=== PATIENT | male | born 1990 | race Two or more races ===

== ENCOUNTER 2016-06-24 23:17 | Emergency (ER) | payer OTHER ==
[~2016-06-24] VITALS: Ht 172.7 cm; Wt 113.4 kg
[~2016-06-24 23:17] MED LIST: ATEN50TA PO; CLON2TAB PO; PARO25TA8 PO
--- NOTE | 2016-06-24 23:18 | NUR ---
Pt brought in by mother, pt c/o Syncope 2hrs prior to arrival. Pt states he was sitting down on chair and had syncopal episode. Pt Also c/o CP radiaiting to back. Also c/o Klonopin withdrawal that was last taken about a day ago. Unable to get RX refill... pt is alert, oriented x 4, no resp distress noted or reported upon assessment... md at bedside...
[2016-06-24] MEDS ORDERED: IV NORMAL SALINE 1000 ML BAG IV ONE (23:45)
[2016-06-24 23:57] LABS: BASOPHILS % (AUTO) 0.4 % (0.0-2.0); EOSINOPHILS % (AUTO) 0.3 % (0.0-7.0); HEMATOCRIT 43.7 % (40.0-50.0); HEMOGLOBIN 14.4 g/dL (14.0-18.0); LYMPHOCYTES # (AUTO) 2.7 K/uL (0.8-4.8); LYMPHOCYTES % (AUTO) 39.9 % (20.5-51.5); MEAN CORPUSCULAR HEMOGLOBIN 31.1 uug (27.0-31.0); MEAN CORPUSCULAR HGB CONC 33 g/dL (32.0-37.0); MEAN CORPUSCULAR VOLUME 94.5 fL (82.0-92.0); MONOCYTES # (AUTO) 0.8 K/uL (0.1-1.30); MONOCYTES % (AUTO) 11.1 % (0.0-11.0); NEUTROPHILS # (AUTO) 3.3 K/uL (1.8-8.9); NEUTROPHILS % (AUTO) 48.3 % (38.5-71.5); PLATELET COUNT (AUTO) 279 K/uL (150-450); RED BLOOD CELL COUNT(AUTO) 4.63 MIL/uL (4.70-6.10); RED CELL DISTRIBUTION WIDTH 14.8 % (11.5-14.5); WHITE BLOOD COUNT (AUTO) 6.8 K/uL (4.0-11.2)
[2016-06-25] MEDS ORDERED: CLONAZEPAM 0.5 MG TABLET PO ONE
[2016-06-25 00:11] LABS: BILIRUBIN,DIRECT 0.1 mg/dL (0.0-0.2); BILIRUBIN,TOTAL 0.3 mg/dL (0.2-1.0); CALCIUM 9.2 mg/dL (8.5-10.1); CREATININE 1.2 mg/dL (0.6-1.3); TOTAL PROTEIN, SERUM 8.9 g/dL (6.4-8.2)
[2016-06-25] MEDS ORDERED: CLONAZEPAM 1 MG TABLET ONE (00:12)
[2016-06-25 00:15] LABS: *AMPHETAMINE, URINE NEGATIVE (NEGATIVE); *BARBITURATE, URINE NEGATIVE (NEGATIVE); *CANNABINOID, URINE POSITIVE (NEGATIVE); *COCCAINE, URINE NEGATIVE (NEGATIVE); *OPIATE, URINE NEGATIVE (NEGATIVE); *PHENCYCLIDINE SCREEN,URINE NEGATIVE (NEGATIVE)
[2016-06-25] MEDS ORDERED: IV D5LR 1,000 ML IV ONE (00:17)
[2016-06-25 00:23] LABS: POTASSIUM 3.6 mmol/L (3.5-5.1)
[2016-06-25 00:44] LABS: ACETAMINOPHEN < 2.0 ug/mL (10-30)
[2016-06-25 00:53] LABS: THYROID STIMULATING HORMONE 1.603 mIU/mL (0.358-3.740)
--- NOTE | 2016-06-25 01:45 | NUR ---
Patient does not wish to proceed with medical care recommended by Dr. Oviedo ). Patient given information related to possible complications, up to and including , which could occur as a result of leaving the hospital at this time. Patient verbalizes understanding of risks involved due to leaving against medical advice. Patient has signed AMA form. Pt advised to seek assistance with mental health professional, to have psych meds refilled, ERMD advised to have pt seen at [facility]... pt states he will comply and make appt... pt denied s/i, h/i, auditory/visual hallucinations... pt walked out of ER unassisted with belongings at side, father met pt in waiting room...
[2016-06-25 02:08] VITALS: BP 125/97
== END 2016-06-25 02:09 | disposition left against medical advice (07) ==
LOC: ER 23:18
DX: F10.129 Alcohol abuse with intoxication, unspecified (principal); F41.9 Anxiety disorder, unspecified; F13.20 Sedative, hypnotic or anxiolytic dependence, uncomplicated; R00.0 Tachycardia, unspecified; I10 Essential (primary) hypertension; Z76.5 Malingerer [conscious simulation]
CPT/HCPCS: 36415 ×2; 71010; 80048; 80076; 80307; 84443; 84484; 85025; 93005; 96360; 96361; 99285; A4663; G0480; G0481; G0482; J3490 ×2; J7030; 70030-TC; G6040-TC

== ENCOUNTER 2016-06-28 08:22 | Emergency (ER) | payer OTHER ==
[~2016-06-28] VITALS: Ht 180.3 cm; Wt 113.4 kg
--- NOTE | 2016-06-28 08:57 | NUR ---
dr schafer at the bedside for eval and exam.
[2016-06-28] MEDS ORDERED: ATENOLOL 50 MG TABLET PO ONE (09:30)
[2016-06-28] MEDS ORDERED: CLONAZEPAM 0.5 MG TABLET PO ONE (09:30)
[2016-06-28] MEDS ORDERED: CLONAZEPAM 1 MG TABLET ONE (09:32)
[2016-06-28] MEDS ORDERED: ATENOLOL 50 MG TABLET ONE (09:32)
[2016-06-28 09:47] VITALS: BP 164/102
--- NOTE | 2016-06-28 09:48 | NUR ---
Patient discharged to home in stable conditon. Written and verbal after care instructions given. Patient verbalizes understanding of instructions.
== END 2016-06-28 09:48 | disposition home or self-care (01) ==
LOC: ER 08:22
DX: F13.239 Sedative, hypnotic or anxiolytic dependence with withdrawal, unspecified (principal); F41.9 Anxiety disorder, unspecified; I10 Essential (primary) hypertension; F10.20 Alcohol dependence, uncomplicated
CPT/HCPCS: 99284; A4663

== ENCOUNTER 2016-07-19 19:15 | Emergency (ER) | payer OTHER ==
[~2016-07-19] VITALS: Ht 177.8 cm; Wt 108.9 kg
[2016-07-19] MEDS ORDERED: CLONAZEPAM 0.5 MG TABLET PO ONE (20:00)
--- NOTE | 2016-07-19 20:00 | NUR ---
SEEN AND EXAMINED BY ERMD, PT FEELS SHAKY AT PRESENT.
[2016-07-19] MEDS ORDERED: CLONAZEPAM 0.5 MG TABLET ONE (20:11)
--- NOTE | 2016-07-19 21:00 | NUR ---
PRESC EXPLAINED TO PT AND UNDERSTOOD, ACI GIVEN AND DISCH AMBULATORY IN STABLE CONDITION.
[2016-07-19 21:12] VITALS: BP 148/82
== END 2016-07-19 21:00 | disposition home or self-care (01) ==
LOC: ER 19:18
DX: F41.9 Anxiety disorder, unspecified (principal); F13.20 Sedative, hypnotic or anxiolytic dependence, uncomplicated; I10 Essential (primary) hypertension; F10.20 Alcohol dependence, uncomplicated
CPT/HCPCS: A4663

== ENCOUNTER 2016-08-09 17:48 | Emergency (ER) | payer OTHER ==
[~2016-08-09] VITALS: Ht 177.8 cm; Wt 115.7 kg
[2016-08-09] MEDS ORDERED: CLONAZEPAM 0.5 MG TABLET PO ONE (18:45)
--- NOTE | 2016-08-09 18:50 | NUR ---
Patient discharged to home in stable conditon. Written and verbal after care instructions given. Patient verbalizes understanding of instructions.PT WALKS IN STEADY GAIT, NO SIGN OF DISTRESS
[2016-08-09] MEDS ORDERED: CLONAZEPAM 1 MG TABLET ONE (18:55)
== END 2016-08-09 18:54 | disposition home or self-care (01) ==
LOC: ER 17:48
DX: Z76.0 Encounter for issue of repeat prescription (principal); I10 Essential (primary) hypertension; F41.9 Anxiety disorder, unspecified; F10.20 Alcohol dependence, uncomplicated
CPT/HCPCS: A4663

== ENCOUNTER 2016-09-22 21:05 | Emergency (ER) | payer OTHER ==
[~2016-09-22] VITALS: Ht 177.8 cm; Wt 111.1 kg
[~2016-09-22 21:05] MED LIST changes: +PARO25TA16 PO; -PARO25TA8 PO
[2016-09-22] MEDS: CLONAZEPAM 0.5 MG TABLET PO ONE (22:42)
[2016-09-22] MEDS ORDERED: CLONAZEPAM 1 MG TABLET ONE (22:52)
--- NOTE | 2016-09-22 22:52 | NUR ---
Patient discharged to home in stable conditon WITH MOTHER TAKING PATIENT HOME. Written and verbal after care instructions given. Patient verbalizes understanding of instructions. WALKED OUT OF WITH NO DISTRESS NOTED
[2016-09-22 22:53] VITALS: BP 155/89
== END 2016-09-22 22:55 | disposition home or self-care (01) ==
LOC: ER 21:06
DX: Z76.0 Encounter for issue of repeat prescription (principal); F41.9 Anxiety disorder, unspecified; I10 Essential (primary) hypertension; F10.20 Alcohol dependence, uncomplicated
CPT/HCPCS: A4663

== ENCOUNTER 2016-10-04 19:06 | Emergency (ER) | payer OTHER ==
[~2016-10-04] VITALS: Ht 177.8 cm; Wt 111.1 kg
[~2016-10-04 19:06] MED LIST changes: -PARO25TA16 PO
--- NOTE | 2016-10-04 19:43 | NUR ---
Dr. yoon at bedside for eval.
[2016-10-04] MEDS ORDERED: CLONAZEPAM 0.5 MG TABLET PO ONE (20:00)
[2016-10-04] MEDS ORDERED: CLONAZEPAM 1 MG TABLET ONE (20:11)
[2016-10-04 20:18] LABS: *BILIRUBIN,URIN NEGATIVE (NEGATIVE); *BLOOD, URINE NEGATIVE (NEGATIVE); *CLARITY,URINE CLEAR (CLEAR); *COLOR,URINE YELLOW (YELLOW); *KETONES,URINE 3+ (NEGATIVE); *PROTEIN,URINE TRACE (NEGATIVE); LEUKOCYTE ESTERASE ,URINE NEGATIVE (NEGATIVE); NITRITE, URINE NEGATIVE (NEGATIVE); UGLUCOSE NEGATIVE (NEGATIVE)
[2016-10-04 20:21] LABS: BASOPHILS % (AUTO) 0.5 % (0.0-2.0); EOSINOPHILS # (AUTO) 0.1 K/uL (0.0-0.7); EOSINOPHILS % (AUTO) 0.9 % (0.0-7.0); HEMATOCRIT 47.4 % (40-50); HEMOGLOBIN 15.5 G/DL (14.0-18.0); LYMPHOCYTES # (AUTO) 1.4 K/UL (0.8-4.8); LYMPHOCYTES % (AUTO) 14.8 % (20.5-51.5); MEAN CORPUSCULAR HEMOGLOBIN 30.4 UUG (27.0-31.0); MEAN CORPUSCULAR HGB CONC 33 g/dL (32.0-37.0); MEAN CORPUSCULAR VOLUME 92.7 FL (82.0-92.0); MONOCYTES # (AUTO) 0.4 K/UL (0.1-1.30); MONOCYTES % (AUTO) 4.3 % (0.0-11.0); NEUTROPHILS # (AUTO) 7.4 K/UL (1.8-8.9); NEUTROPHILS % (AUTO) 79.5 % (38.5-71.5); PLATELET COUNT (AUTO) 208 K/UL (150-450); RED BLOOD CELL COUNT(AUTO) 5.11 MIL/UL (4.7-6.1); WHITE BLOOD COUNT (AUTO) 9.3 K/UL (4.0-11.2)
[2016-10-04 20:21] LABS: BACTERIA,URINE NONE SEEN /HPF (NONE SEEN); RBC,URINE 0-3 /HPF (0-3); SQUAMOUS EPITHELIAL CELL,UR NONE SEEN /HPF (NONE SEEN); WBC,URINE 0-3 /HPF (0-3)
[2016-10-04 20:24] LABS: ETHANOL < 3 MG/DL (0-0)
[2016-10-04 20:25] LABS: ALANINE AMINOTRANSFERASE 130 U/L (16-63); ALKALINE PHOSPHATASE 45 U/L (50-136); ASPARTATE AMINOTRANSFERASE 132 U/L (15-37); BILIRUBIN,DIRECT 0.3 mg/dL (0.0-0.2); BILIRUBIN,TOTAL 0.9 mg/dL (0.2-1.0); CARBON DIOXIDE 22 mmol/L (21-32); CHLORIDE 101 mmol/L (98-107); CREATININE 0.9 mg/dL (0.6-1.3); GLUCOSE 123 mg/dL (74-106); POTASSIUM 3.2 mmol/L (3.5-5.1); TOTAL PROTEIN, SERUM 8.3 g/dL (6.4-8.2); UREA NITROGEN, BLOOD 10 mg/dL (7-18)
[2016-10-04 20:27] LABS: *AMPHETAMINE, URINE NEGATIVE (NEGATIVE); *BARBITURATE, URINE NEGATIVE (NEGATIVE); *CANNABINOID, URINE NEGATIVE (NEGATIVE); *COCCAINE, URINE NEGATIVE (NEGATIVE); *OPIATE, URINE NEGATIVE (NEGATIVE); *PHENCYCLIDINE SCREEN,URINE NEGATIVE (NEGATIVE)
--- NOTE | 2016-10-04 20:43 | NUR ---
Patient discharged to home in stable conditon. Written and verbal after care instructions given. Patient verbalizes understanding of instructions. patient left with stable gait.
[2016-10-04 20:44] VITALS: BP 140/81
[2016-10-04] MEDS ORDERED: POTASSIUM CHLORIDE 20 MEQ TAB.PRT.SR ONE (20:45)
[2016-10-04] MEDS ORDERED: POTASSIUM CHLORIDE 20 MEQ TAB.PRT.SR PO ONE (20:45)
== END 2016-10-04 20:45 | disposition home or self-care (01) ==
LOC: ER 19:07
DX: Z76.0 Encounter for issue of repeat prescription (principal); I10 Essential (primary) hypertension; F41.9 Anxiety disorder, unspecified; F10.20 Alcohol dependence, uncomplicated
CPT/HCPCS: 36415; 80307; 85025; 93005; A4663; G0480

== ENCOUNTER 2016-10-16 19:04 | Emergency (ER) | payer OTHER ==
[~2016-10-16] VITALS: Ht 177.8 cm; Wt 111.1 kg
[2016-10-16] MEDS: CLONAZEPAM 0.5 MG TABLET PO ONE (19:37)
--- NOTE | 2016-10-16 19:42 | NUR ---
Patient discharged to home in stable conditon. Written and verbal after care instructions given. Patient verbalizes understanding of instructions.
[2016-10-16] MEDS ORDERED: CLONAZEPAM 1 MG TABLET ONE (19:44)
== END 2016-10-16 19:43 | disposition home or self-care (01) ==
LOC: ER 19:06
DX: Z76.0 Encounter for issue of repeat prescription (principal); F13.20 Sedative, hypnotic or anxiolytic dependence, uncomplicated; I10 Essential (primary) hypertension; F41.0 Panic disorder [episodic paroxysmal anxiety]; F10.20 Alcohol dependence, uncomplicated; Z76.5 Malingerer [conscious simulation]
CPT/HCPCS: A4663

== ENCOUNTER 2016-10-18 00:25 | Emergency (ER) | payer OTHER ==
[~2016-10-18] VITALS: Ht 177.8 cm; Wt 108.9 kg
[2016-10-18] MEDS ORDERED: ATENOLOL 50 MG TABLET PO ONE (00:45)
[2016-10-18] MEDS ORDERED: CLONAZEPAM 0.5 MG TABLET PO ONE (00:45)
[2016-10-18 00:50] VITALS: BP 123/82
--- NOTE | 2016-10-18 00:52 | NUR ---
ACI reviewed with by pt MD, pt verbalized understanding of dc instructions. Pt then requested a dose of his home medications. Pt walked out of ER with steady gait after receiving medication refusing post medication assessment.
[2016-10-18] MEDS ORDERED: CLONAZEPAM 1 MG TABLET ONE (00:58)
[2016-10-18] MEDS ORDERED: ATENOLOL 50 MG TABLET ONE (00:58)
== END 2016-10-18 00:55 | disposition home or self-care (01) ==
LOC: ER 00:25
DX: Z76.0 Encounter for issue of repeat prescription (principal); I10 Essential (primary) hypertension; F41.9 Anxiety disorder, unspecified; F10.20 Alcohol dependence, uncomplicated
CPT/HCPCS: A4663

== ENCOUNTER 2016-11-09 13:48 | Emergency (ER) | payer OTHER ==
[~2016-11-09] VITALS: Ht 175.3 cm; Wt 108.9 kg
--- NOTE | 2016-11-09 15:23 | NUR ---
Dr Dotson at the bedside for eval.
--- NOTE | 2016-11-09 15:38 | NUR ---
Patient discharged to home in stable conditon. Written and verbal after care instructions given. Patient verbalizes understanding of instructions.
[2016-11-09 15:39] VITALS: BP 147/99
== END 2016-11-09 15:42 | disposition home or self-care (01) ==
LOC: ER 13:48
DX: F13.20 Sedative, hypnotic or anxiolytic dependence, uncomplicated (principal); F41.9 Anxiety disorder, unspecified; I10 Essential (primary) hypertension
CPT/HCPCS: A4663

== ENCOUNTER 2016-12-01 14:30 | Emergency (ER) | payer OTHER ==
[~2016-12-01] VITALS: Ht 175.3 cm; Wt 108.9 kg
--- NOTE | 2016-12-01 15:13 | NUR ---
MSE COMPLETED, PT D/C'D HOME, ACI RX X1 GIVEN. PT AMBULATED W/O DIFF/TOOK ALL BELONGINGS.
[2016-12-01 15:14] VITALS: BP 132/82
== END 2016-12-01 15:15 | disposition home or self-care (01) ==
LOC: ER 14:30
DX: F13.20 Sedative, hypnotic or anxiolytic dependence, uncomplicated (principal); I10 Essential (primary) hypertension; F41.0 Panic disorder [episodic paroxysmal anxiety]
CPT/HCPCS: A4663

== ENCOUNTER 2016-12-20 00:13 | Emergency (ER) | payer OTHER ==
[~2016-12-20] VITALS: Ht 175.3 cm; Wt 108.9 kg
--- NOTE | 2016-12-20 00:45 | NUR ---
TO ROOM 5A FOR ER EVAL
--- NOTE | 2016-12-20 01:40 | NUR ---
PT RESTIG.NO COMPLAINTS VOICED.
--- NOTE | 2016-12-20 02:35 | NUR ---
ERMD AT BEDSIDE TALKING WITH PT
[2016-12-20 02:44] VITALS: BP 141/90
--- NOTE | 2016-12-20 02:45 | NUR ---
Patient discharged to home in stable conditon. Written and verbal after care instructions given. Patient verbalizes understanding of instructions.
== END 2016-12-20 02:46 | disposition home or self-care (01) ==
LOC: ER 00:15
DX: F19.939 Other psychoactive substance use, unspecified with withdrawal, unspecified (principal); I10 Essential (primary) hypertension; F41.9 Anxiety disorder, unspecified
CPT/HCPCS: 99283; A4663

== ENCOUNTER 2017-01-10 21:57 | Emergency (ER) | payer OTHER ==
[~2017-01-10] VITALS: Ht 175.3 cm; Wt 108.9 kg
--- NOTE | 2017-01-10 22:20 | NUR ---
Patient discharged to home in stable conditon. Written and verbal after care instructions given. Patient verbalizes understanding of instructions.
== END 2017-01-10 22:21 | disposition home or self-care (01) ==
LOC: ER 21:59
DX: Z76.0 Encounter for issue of repeat prescription (principal); F41.9 Anxiety disorder, unspecified; I10 Essential (primary) hypertension
CPT/HCPCS: A4663

== ENCOUNTER 2017-03-27 17:27 | Emergency (ER) | payer OTHER ==
[~2017-03-27] VITALS: Ht 177.8 cm; Wt 111.1 kg
[2017-03-27] MEDS ORDERED: AMPH30CA3 PO (18:28)
--- NOTE | 2017-03-27 20:19 | NUR ---
Patient discharged to home in stable conditon. Written and verbal after care instructions given. Patient verbalizes understanding of instructions.
== END 2017-03-27 20:20 | disposition home or self-care (01) ==
LOC: ER 17:27
DX: F41.1 Generalized anxiety disorder (principal); I10 Essential (primary) hypertension
CPT/HCPCS: 99284; A4663

== ENCOUNTER 2017-05-08 19:44 | Emergency (ER) | payer OTHER ==
[~2017-05-08] VITALS: Ht 177.8 cm; Wt 111.1 kg
[~2017-05-08 19:44] MED LIST changes: +AMPH30CA3 PO
[2017-05-08] MEDS ORDERED: CLONAZEPAM 0.5 MG TABLET PO ONE (21:30)
--- NOTE | 2017-05-08 21:39 | NUR ---
Patient discharged to home in stable conditon. Written and verbal after care instructions given. Patient verbalizes understanding of instructions. Pt ambulated from ER w/ steady gait. VSS. No distress noted. Pt took all personal belongings.
[2017-05-08 21:42] VITALS: BP 122/79
[2017-05-08] MEDS ORDERED: CLONAZEPAM 1 MG TABLET ONE (21:46)
== END 2017-05-08 21:43 | disposition home or self-care (01) ==
LOC: ER 19:46
DX: Z76.0 Encounter for issue of repeat prescription (principal); I10 Essential (primary) hypertension; F41.9 Anxiety disorder, unspecified
CPT/HCPCS: 99283; A4663

== ENCOUNTER 2017-05-19 16:19 | Emergency (ER) | payer OTHER ==
[~2017-05-19] VITALS: Ht 177.8 cm; Wt 108.9 kg
[2017-05-19] MEDS ORDERED: CLONAZEPAM 0.5 MG TABLET PO ONE (16:45)
[2017-05-19] MEDS ORDERED: HYDROCODONE/APAP 10-325 MG TABLET PO ONE (16:45)
[2017-05-19] MEDS ORDERED: CLONAZEPAM 1 MG TABLET ONE (16:49)
[2017-05-19] MEDS ORDERED: HYDROCODONE/APAP 10-325 MG TABLET ONE (16:49)
--- NOTE | 2017-05-19 17:01 | NUR ---
Patient discharged to home in stable conditon. Written and verbal after care instructions given. Patient verbalizes understanding of instructions.PT WALKS IN STEADY GAIT. PT WITH MOTHER, PT NOT DRIVING.
== END 2017-05-19 17:05 | disposition home or self-care (01) ==
LOC: ER 16:20
DX: F41.9 Anxiety disorder, unspecified (principal); I10 Essential (primary) hypertension; Z76.0 Encounter for issue of repeat prescription
CPT/HCPCS: A4663

== ENCOUNTER 2017-07-06 23:09 | Emergency (ER) | payer OTHER ==
[~2017-07-06] VITALS: Ht 177.8 cm; Wt 111.1 kg
--- NOTE | 2017-07-07 00:10 | NUR ---
PT STATES HE RAN OUT OF MEDS FOR ANXIEY AND HTN4 DAYS AGO. REQUEST REFILL.
[2017-07-07] MEDS ORDERED: ATENOLOL 50 MG TABLET PO ONE (00:15)
[2017-07-07] MEDS ORDERED: CLONAZEPAM 0.5 MG TABLET PO ONE (00:15)
[2017-07-07] MEDS ORDERED: ATENOLOL 50 MG TABLET ONE (00:17)
[2017-07-07] MEDS ORDERED: CLONAZEPAM 1 MG TABLET ONE (00:17)
--- NOTE | 2017-07-07 00:20 | NUR ---
Patient discharged to home in stable conditon. Written and verbal after care instructions given. Patient verbalizes understanding of instructions. Pt expresses he is less anxious now, and that he "feels better already". No distress noted.
[2017-07-07 01:08] VITALS: BP 140/76
== END 2017-07-07 01:08 | disposition home or self-care (01) ==
LOC: ER 23:10
DX: F41.1 Generalized anxiety disorder (principal); F41.0 Panic disorder [episodic paroxysmal anxiety]; I10 Essential (primary) hypertension; Z79.899 Other long term (current) drug therapy
CPT/HCPCS: A4663

== ENCOUNTER 2017-07-24 04:58 | Emergency (ER) | payer OTHER ==
[~2017-07-24] VITALS: Ht 177.8 cm; Wt 111.1 kg
--- NOTE | 2017-07-24 05:24 | NUR ---
PT PRESENTS TO ER IN ANXIOUS STATE, STATING HE "FEELS LIKE SOMETHING BAD IS GOING TO HAPPEN" AND THAT HE "FEELS LIKE HE IS DYING". STATES HE HAS NOT HAD ANY OF HIS PRESCRIBEB BENZOS OR BP MEDS FOR 3 DAYS. STATES HE HAS NOT HAD ANY ILLICIT DRUGS, BUT "DRANK ALOT TODAY". DENIES SUICIDAL IDEATION. DENIES HEARING VOICES. PT REQUESTS MED REFILLS.
--- NOTE | 2017-07-24 05:28 | NUR ---
DR GUILLERMINA CRUZ MD AT BEDSIDE FOR MSE.
[2017-07-24] MEDS ORDERED: ATENOLOL 50 MG TABLET PO ONE (05:45)
[2017-07-24] MEDS ORDERED: CLONAZEPAM 0.5 MG TABLET PO ONE (05:45)
[2017-07-24] MEDS ORDERED: CLONAZEPAM 1 MG TABLET ONE (05:47)
[2017-07-24] MEDS ORDERED: ATENOLOL 50 MG TABLET ONE (05:47)
--- NOTE | 2017-07-24 06:06 | NUR ---
Patient discharged to home in stable conditon. Written and verbal after care instructions given. Patient verbalizes understanding of instructions. PT ambulated from ER w/ steady gait. No distress noted.
[2017-07-24 06:07] VITALS: BP 147/87
== END 2017-07-24 06:08 | disposition home or self-care (01) ==
LOC: ER 05:01
DX: F41.8 Other specified anxiety disorders (principal); I10 Essential (primary) hypertension; F32.9 Major depressive disorder, single episode, unspecified; Z79.899 Other long term (current) drug therapy
CPT/HCPCS: 93005; A4663

== ENCOUNTER 2017-07-24 06:30 | Emergency (ER) | payer OTHER ==
[~2017-07-24] VITALS: Ht 177.8 cm; Wt 111.1 kg
--- NOTE | 2017-07-24 06:32 | NUR ---
PT WAS IN ER THE PAST HOUR FOR ANXIETY/MED WITHDRAWL. AFTER MEDICAL AND NURSING INTRVVENTIONS, PT WAS TABLE FOR DISCHARGE. DISCHARGE INSTRUCTIONS GIVEN, AND PT VERBALIZED UNDERSTANDING OF AFTERCARE. PT SIGNED DISCHARGE, AND CALMLY LEFT ROOM W/ NO DISTRESS, SO PT WAS CHARTED OUT OF SYSTEM. HOWEVER, PT THEN REQUESTED TO USE PHONE TO CALL MOTHER. AFTER THE PHONE CALL, PT BECAME VISIBLY UPSET AND CRYING. PT VERBALIZES DESIRE TO BE ADMITTED TO PSYCH UNIT. PT STATED "I NEED HELP," BUT DID NOT EXPRESS ANY THOUGHTS OF SI OR SELF HARM.
--- NOTE | 2017-07-24 06:43 | NUR ---
DR SOUMYA CRUZ MD AT BEDSIDE FOR MSE.
--- NOTE | 2017-07-24 07:14 | NUR ---
dr yoon evaluated the pt. pt was d/c to home. d/c instructions given to the pt.
[2017-07-24 07:16] VITALS: BP 136/77
== END 2017-07-24 07:22 | disposition home or self-care (01) ==
LOC: ER 06:32
DX: F41.9 Anxiety disorder, unspecified (principal); I10 Essential (primary) hypertension; Z76.0 Encounter for issue of repeat prescription; Z79.899 Other long term (current) drug therapy
CPT/HCPCS: A4663

== ENCOUNTER 2017-08-23 09:24 | Emergency (ER) | payer OTHER ==
[~2017-08-23] VITALS: Ht 177.8 cm; Wt 111.1 kg
--- NOTE | 2017-08-23 09:53 | NUR ---
PT SEEN AND EVAZLUATED BY DR. WELLER.
[2017-08-23] MEDS ORDERED: CLONAZEPAM 1 MG TABLET ONE (09:56)
[2017-08-23 09:59] VITALS: BP 142/78
--- NOTE | 2017-08-23 09:59 | NUR ---
Patient discharged to home in stable conditon. Written and verbal after care instructions given. Patient verbalizes understanding of instructions. RX X4 GIVEN PT ambulatory with a steady gait
[2017-08-23] MEDS ORDERED: CLONAZEPAM 0.5 MG TABLET PO ONE (10:00)
== END 2017-08-23 09:59 | disposition home or self-care (01) ==
LOC: ER 09:27
DX: F13.20 Sedative, hypnotic or anxiolytic dependence, uncomplicated (principal); F41.1 Generalized anxiety disorder; I10 Essential (primary) hypertension; Z79.899 Other long term (current) drug therapy
CPT/HCPCS: A4663

== ENCOUNTER 2017-09-13 22:32 | Emergency (ER) | payer OTHER ==
[~2017-09-13] VITALS: Ht 177.8 cm; Wt 106.6 kg
[2017-09-14] MEDS ORDERED: LORAZEPAM 2 MG/1 ML VIAL IV ONE
[2017-09-14] MEDS ORDERED: PANTOPRAZOLE SODIUM 40 MG VIAL IV ONE
[2017-09-14] MEDS ORDERED: IV NORMAL SALINE 1000 ML BAG IV ONE
[2017-09-14] MEDS ORDERED: PANTOPRAZOLE SODIUM 40 MG VIAL ONE (00:12)
[2017-09-14] MEDS ORDERED: LORAZEPAM 2 MG/1 ML VIAL ONE (00:13)
[2017-09-14 00:16] LABS: BASOPHILS % (AUTO) 0.2 % (0.0-2.0); EOSINOPHILS % (AUTO) 0.2 % (0.0-7.0); HEMATOCRIT 42.7 % (36.7-47.1); HEMOGLOBIN 15.1 g/dL (12.5-16.3); LYMPHOCYTES # (AUTO) 1.2 K/uL (20.0-40.0); MEAN CORPUSCULAR HEMOGLOBIN 33.3 uug (23.8-33.4); MEAN CORPUSCULAR HGB CONC 35 g/dL (32.5-36.3); MONOCYTES # (AUTO) 0.7 K/uL (2.0-10.0); MONOCYTES % (AUTO) 6.2 % (0.0-11.0); NEUTROPHILS # (AUTO) 8.8 K/uL (1.8-8.9); NEUTROPHILS % (AUTO) 82.4 % (38.5-71.5); PLATELET COUNT (AUTO) 186 K/uL (152-348); RED BLOOD CELL COUNT(AUTO) 4.55 MIL/uL (4.06-5.63); WHITE BLOOD COUNT (AUTO) 10.7 K/uL (3.6-10.2)
[2017-09-14 00:31] LABS: BILIRUBIN,DIRECT 0.2 mg/dL (0.0-0.2); BILIRUBIN,TOTAL 0.6 mg/dL (0.2-1.0); CREATININE 1.1 mg/dL (0.6-1.3); TOTAL PROTEIN, SERUM 8.2 g/dL (6.4-8.2)
--- NOTE | 2017-09-14 01:50 | NUR ---
SEE DOWNTIME PAPERWORK FOR A LIST OF ORDERED MEDS GIVEN DURING DOWNTIME FOR THIS PATIENT
[2017-09-14] MEDS ORDERED: MORPHINE SULFATE 4 MG/1 ML DISP.SYRIN ONE ×2 (02:03→02:35)
[2017-09-14] MEDS ORDERED: ONDANSETRON HCL 4 MG TABLET ONE (02:04)
--- NOTE | 2017-09-14 02:07 | NUR ---
PT IN BED RESTING QUIETLY WATCHING TV. PT IS CALM AND COOPERATIVE. PT IS OFFERED BEVERAGE AND TOILETING. PT REFUSES TOILETING AND ACCEPTS BEVERAGE. NO SIGNS OF DISTRESS WITNESSED AT THIS TIME.
--- NOTE | 2017-09-14 04:39 | NUR ---
REPORT GIVEN TO [facility] NUR[facility] RN
--- NOTE | 2017-09-14 04:50 | NUR ---
GAVE REPORT TO EMT SHEILA CARDONA W/ EDI #[id number]
== END 2017-09-14 04:40 | disposition short-term general hospital (02) ==
LOC: ER 22:39
DX: K85.90 Acute pancreatitis without necrosis or infection, unspecified (principal); I10 Essential (primary) hypertension; F12.10 Cannabis abuse, uncomplicated; F15.10 Other stimulant abuse, uncomplicated; Z79.899 Other long term (current) drug therapy
CPT/HCPCS: 36415; 71045; 80048; 80076; 83690; 85025; 93005; 96374; 96375; 99285; A4663; C9113; G0480; J2060; J2270 ×2; J7030; Q0162

== ENCOUNTER 2017-10-26 21:32 | Emergency (ER) | payer SELFPAY ==
[~2017-10-26] VITALS: Ht 175.3 cm; Wt 111.1 kg
--- NOTE | 2017-10-26 22:02 | NUR ---
DR SOUMYA CRUZ MD AT BEDSIDE FOR MSE.
[2017-10-26] MEDS ORDERED: IBUPROFEN 800 MG TABLET ONE (22:28)
[2017-10-26] MEDS ORDERED: ATENOLOL 50 MG TABLET ONE (22:42)
[2017-10-26] MEDS ORDERED: CLONAZEPAM 1 MG TABLET ONE (22:43)
[2017-10-26] MEDS ORDERED: CLONAZEPAM 0.5 MG TABLET PO ONE (22:45)
[2017-10-26] MEDS ORDERED: ATENOLOL 50 MG TABLET PO ONE (22:45)
[2017-10-26] MEDS ORDERED: IBUPROFEN 800 MG TABLET PO ONE (22:45)
--- NOTE | 2017-10-26 22:55 | NUR ---
Patient discharged to home in stable conditon. Written and verbal after care instructions given. Patient verbalizes understanding of instructions. Pt denies CP, SOB, SI, GUZMAN. No distress noted. VSS. Pt took all personal belongings.
[2017-10-26 22:57] VITALS: BP 152/78
== END 2017-10-26 22:58 | disposition home or self-care (01) ==
LOC: ER 21:33
DX: F41.9 Anxiety disorder, unspecified (principal); Z76.0 Encounter for issue of repeat prescription; I10 Essential (primary) hypertension; F12.10 Cannabis abuse, uncomplicated; F15.10 Other stimulant abuse, uncomplicated
CPT/HCPCS: A4663

== ENCOUNTER 2017-11-17 08:35 | Emergency (ER) | payer SELFPAY ==
[~2017-11-17] VITALS: Ht 177.8 cm; Wt 109.8 kg
[2017-11-17] MEDS ORDERED: HYDR-3980 PO (08:54)
[2017-11-17] MEDS ORDERED: ONDA4TAB8 SL (08:54)
[2017-11-17] MEDS: CLONAZEPAM 0.5 MG TABLET PO ONE (09:09)
[2017-11-17 09:10] VITALS: BP 166/104
[2017-11-17] MEDS: ATENOLOL 50 MG TABLET PO ONE (09:10)
[2017-11-17] MEDS ORDERED: ATENOLOL 50 MG TABLET ONE (09:12)
[2017-11-17] MEDS ORDERED: CLONAZEPAM 1 MG TABLET ONE (09:12)
--- NOTE | 2017-11-17 09:14 | NUR ---
Patient discharged to home in stable conditon with brisk steady gait. Written and verbal after care instructions given to patient. Patient verbalizes understanding of instructions. MD gave prescription for Klonopin, zofran & atenolol.
== END 2017-11-17 09:19 | disposition home or self-care (01) ==
LOC: ER 08:35
DX: Z76.0 Encounter for issue of repeat prescription (principal); I10 Essential (primary) hypertension; F13.20 Sedative, hypnotic or anxiolytic dependence, uncomplicated; F12.10 Cannabis abuse, uncomplicated; Z88.8 Allergy status to other drugs, medicaments and biological substances
CPT/HCPCS: A4663

== ENCOUNTER 2017-11-28 10:10 | Emergency (ER) | payer SELFPAY ==
[~2017-11-28] VITALS: Ht 177.8 cm; Wt 113.4 kg
[~2017-11-28 10:10] MED LIST changes: -AMPH30CA3 PO; +HYDR-3980 PO; +ONDA4TAB8 SL
[2017-11-28] MEDS ORDERED: ATENOLOL 50 MG TABLET PO ONE (10:45)
[2017-11-28] MEDS ORDERED: CLONAZEPAM 0.5 MG TABLET PO ONE (10:45)
[2017-11-28 10:47] VITALS: BP 159/90
--- NOTE | 2017-11-28 10:47 | NUR ---
Patient discharged to home in stable conditon. Written and verbal after care instructions given. Patient verbalizes understanding of instructions. Pt was given referrals, stressed follow up or return to ER for worsening s/s. Pt stated his father will drive him home.
[2017-11-28] MEDS ORDERED: CLONAZEPAM 1 MG TABLET ONE (10:50)
[2017-11-28] MEDS ORDERED: ATENOLOL 50 MG TABLET ONE (10:50)
== END 2017-11-28 10:49 | disposition home or self-care (01) ==
LOC: ER 10:10
DX: F13.20 Sedative, hypnotic or anxiolytic dependence, uncomplicated (principal); F15.23 Other stimulant dependence with withdrawal; I10 Essential (primary) hypertension; Z88.8 Allergy status to other drugs, medicaments and biological substances; F12.10 Cannabis abuse, uncomplicated
CPT/HCPCS: A4663

== ENCOUNTER 2017-12-08 22:55 | Emergency (ER) | payer MEDICAID ==
[~2017-12-08] VITALS: Ht 177.8 cm; Wt 108.9 kg
[2017-12-09] MEDS ORDERED: CLONAZEPAM 0.5 MG TABLET PO ONE (01:00)
[2017-12-09] MEDS ORDERED: ATENOLOL 50 MG TABLET PO ONE (01:00)
[2017-12-09] MEDS ORDERED: ATENOLOL 50 MG TABLET ONE (01:05)
[2017-12-09] MEDS ORDERED: CLONAZEPAM 1 MG TABLET ONE (01:05)
[2017-12-09 01:14] VITALS: BP 165/113
--- NOTE | 2017-12-09 01:15 | NUR ---
Patient discharged to home in stable conditon. Written and verbal after care instructions given. Patient verbalizes understanding of instructions.steady of gait ambulated home ,oyster picker by mother .
== END 2017-12-09 01:16 | disposition home or self-care (01) ==
LOC: ER 22:56
DX: F15.93 Other stimulant use, unspecified with withdrawal (principal); I10 Essential (primary) hypertension; Z88.8 Allergy status to other drugs, medicaments and biological substances; F12.10 Cannabis abuse, uncomplicated
CPT/HCPCS: A4663

== ENCOUNTER 2017-12-28 21:23 | Emergency (ER) | payer MEDICAID ==
[~2017-12-28] VITALS: Ht 177.8 cm; Wt 111.1 kg
--- NOTE | 2017-12-28 22:05 | NUR ---
Patient discharged to home in stable conditon. Written and verbal after care instructions given. Patient verbalizes understanding of instructions.
[2017-12-28 22:06] VITALS: BP 149/88
== END 2017-12-28 22:06 | disposition home or self-care (01) ==
LOC: ER 21:24
DX: F41.9 Anxiety disorder, unspecified (principal); F13.20 Sedative, hypnotic or anxiolytic dependence, uncomplicated; I10 Essential (primary) hypertension; F12.10 Cannabis abuse, uncomplicated; Z88.8 Allergy status to other drugs, medicaments and biological substances
CPT/HCPCS: A4663

== ENCOUNTER 2018-01-09 13:45 | Emergency (ER) | payer MEDICAID ==
[~2018-01-09] VITALS: Ht 177.8 cm; Wt 111.1 kg
[2018-01-09] MEDS ORDERED: ATENOLOL 50 MG TABLET PO ONE (14:15)
[2018-01-09] MEDS ORDERED: IBUPROFEN 600 MG TABLET PO ONE (14:15)
[2018-01-09] MEDS ORDERED: CLONAZEPAM 0.5 MG TABLET PO ONE (14:15)
[2018-01-09] MEDS ORDERED: ATENOLOL 50 MG TABLET ONE (14:16)
[2018-01-09] MEDS ORDERED: CLONAZEPAM 1 MG TABLET ONE (14:16)
[2018-01-09 14:19] VITALS: BP 148/103
[2018-01-09] MEDS ORDERED: IBUPROFEN 600 MG TABLET ONE (14:20)
--- NOTE | 2018-01-09 14:21 | NUR ---
Patient discharged to home in stable conditon. Written and verbal after care instructions given. Patient verbalizes understanding of instructions.
== END 2018-01-09 14:23 | disposition home or self-care (01) ==
LOC: ER 13:45
DX: F41.9 Anxiety disorder, unspecified (principal); Z76.0 Encounter for issue of repeat prescription; I10 Essential (primary) hypertension; F12.10 Cannabis abuse, uncomplicated; Z88.8 Allergy status to other drugs, medicaments and biological substances
CPT/HCPCS: A4663

== ENCOUNTER 2018-02-22 20:33 | Emergency (ER) | payer SELFPAY ==
[~2018-02-22] VITALS: Ht 177.8 cm; Wt 108.9 kg
[2018-02-22] MEDS ORDERED: CLONAZEPAM 0.5 MG TABLET PO ONE (21:15)
[2018-02-22] MEDS ORDERED: ATENOLOL 50 MG TABLET PO ONE (21:15)
[2018-02-22] MEDS ORDERED: CLONAZEPAM 1 MG TABLET ONE (21:34)
[2018-02-22] MEDS ORDERED: ATENOLOL 50 MG TABLET ONE (21:34)
--- NOTE | 2018-02-22 21:41 | NUR ---
Patient discharged to home in stable conditon. Written and verbal after care instructions given. Patient verbalizes understanding of instructions. Pt instructed not to drive. All belongings with pt. VSS. NAD noted.
[2018-02-22 21:42] VITALS: BP 138/86
== END 2018-02-22 21:42 | disposition home or self-care (01) ==
LOC: ER 20:34
DX: Z76.0 Encounter for issue of repeat prescription (principal); I10 Essential (primary) hypertension; F12.10 Cannabis abuse, uncomplicated; Z88.8 Allergy status to other drugs, medicaments and biological substances
CPT/HCPCS: A4663

== ENCOUNTER 2018-03-19 11:45 | Emergency (ER) | payer SELFPAY ==
[~2018-03-19] VITALS: Ht 177.8 cm; Wt 108.9 kg
--- NOTE | 2018-03-19 12:00 | NUR ---
27 YEARS OLD MALE WALKING TO ER C/O ANXIETY D/T KLONOPIN WITHDRAWAL, PATIENT QUIET NO ACUTE DISTRESS WILL CONTINUE TO MONITOR.
[2018-03-19] MEDS ORDERED: GABAPENTIN 300 MG CAPSULE ONE (14:09)
[2018-03-19] MEDS ORDERED: GABAPENTIN 300 MG CAPSULE PO ONE (14:15)
--- NOTE | 2018-03-19 15:49 | NUR ---
PATIENT CONDITION STABLE D/C HOME WITH INSTRUCTIONS AFTER CARE REVIEWED UNDERSTOOD LEFT ER AMBULATORY WITH STEADY GAIT.
[2018-03-19] MEDS ORDERED: GABA600T2 PO (22:59)
[2018-03-19] MEDS ORDERED: GABA-534 PO (22:59)
[2018-03-24] MEDS ORDERED: ATEN50TA PO (13:17)
[2018-03-24] MEDS ORDERED: QUET25TA PO (13:17)
[2018-03-24] MEDS ORDERED: GABA-534 PO (13:17)
== END 2018-03-19 15:52 | disposition home or self-care (01) ==
LOC: ER 11:45
DX: F13.20 Sedative, hypnotic or anxiolytic dependence, uncomplicated (principal); I10 Essential (primary) hypertension; F12.10 Cannabis abuse, uncomplicated; Z88.8 Allergy status to other drugs, medicaments and biological substances; Z79.899 Other long term (current) drug therapy
CPT/HCPCS: A4663

== ENCOUNTER 2018-03-19 16:05 | Inpatient (IN) | payer MEDICAID, OTHER ==
[~2018-03-19] VITALS: Ht 175.3 cm; Wt 117.0 kg
[2018-03-19] MEDS ORDERED: LORAZEPAM 2 MG/1 ML VIAL IM PRN (16:45)
[2018-03-19] MEDS ORDERED: ONDANSETRON ODT 4 MG TAB.RAPDIS SL PRN (16:45)
[2018-03-19] MEDS ORDERED: MIRALAX 17 GM POWD.PACK PO PRN (16:45)
[2018-03-19] MEDS ORDERED: HYDROXYZINE PAMOATE 25 MG CAPSULE PO PRN (16:45)
[2018-03-19] MEDS ORDERED: LOPERAMIDE HCL 2 MG CAPSULE PO PRN ×2 (16:45)
[2018-03-19] MEDS ORDERED: MAGNESIUM HYDROXIDE 30 ML LIQUID UDC PO PRN (16:45)
[2018-03-19] MEDS ORDERED: ONDANSETRON 4 MG/2 ML VIAL IM PRN (16:45)
[2018-03-19] MEDS ORDERED: MAG HYDROX/AL HYDROX/SIMETH 30 ML LIQUID UDC PO PRN (16:45)
[2018-03-19] MEDS ORDERED: LORAZEPAM 1 MG TABLET PO PRN (16:45)
[2018-03-19 16:53] VITALS: BP 159/91
[2018-03-19 17:47] LABS: *AMPHETAMINE, URINE NEGATIVE (NEGATIVE); *BARBITURATE, URINE NEGATIVE (NEGATIVE); *CANNABINOID, URINE POSITIVE (NEGATIVE); *COCCAINE, URINE NEGATIVE (NEGATIVE); *OPIATE, URINE NEGATIVE (NEGATIVE); *PHENCYCLIDINE SCREEN,URINE NEGATIVE (NEGATIVE)
[2018-03-19] MEDS ORDERED: DIAZEPAM 10 MG TABLET PO ONE (18:00)
[2018-03-19] MEDS: IBUPROFEN 600 MG TABLET PO PRN (19:38)
[2018-03-19 20:00] VITALS: BP 131/87
[2018-03-19 20:08] LABS: BASOPHILS # (AUTO) 0.1 K/uL (0.0-8.0); BASOPHILS % (AUTO) 0.7 % (0.0-2.0); EOSINOPHILS # (AUTO) 0.1 K/uL (0.0-0.7); EOSINOPHILS % (AUTO) 0.7 % (0.0-7.0); HEMATOCRIT 47.8 % (36.7-47.1); HEMOGLOBIN 16.4 g/dL (12.5-16.3); LYMPHOCYTES # (AUTO) 2.5 K/uL (20.0-40.0); MEAN CORPUSCULAR HEMOGLOBIN 33.1 uug (23.8-33.4); MEAN CORPUSCULAR HGB CONC 34 g/dL (32.5-36.3); MEAN CORPUSCULAR VOLUME 96.3 fL (73.0-96.2); MONOCYTES # (AUTO) 0.9 K/uL (2.0-10.0); MONOCYTES % (AUTO) 8.7 % (0.0-11.0); NEUTROPHILS # (AUTO) 6.8 K/uL (1.8-8.9); NEUTROPHILS % (AUTO) 65.9 % (38.5-71.5); PLATELET COUNT (AUTO) 269 K/uL (152-348); RED BLOOD CELL COUNT(AUTO) 4.97 MIL/uL (4.06-5.63); WHITE BLOOD COUNT (AUTO) 10.3 K/uL (3.6-10.2)
[2018-03-19 20:22] LABS: ETHANOL < 3 MG/DL (0-0)
[2018-03-19 20:24] LABS: ALANINE AMINOTRANSFERASE 235 U/L (16-63); ALKALINE PHOSPHATASE 52 U/L (50-136); ASPARTATE AMINOTRANSFERASE 124 U/L (15-37); BILIRUBIN,TOTAL 0.5 mg/dL (0.2-1.0); CARBON DIOXIDE 29 mmol/L (21-32); CHLORIDE 102 mmol/L (98-107); CREATININE 1.1 mg/dL (0.6-1.3); GLUCOSE 78 mg/dL (74-106); MAGNESIUM 1.8 mg/dL (1.8-2.4); POTASSIUM 3.7 mmol/L (3.5-5.1); TOTAL PROTEIN, SERUM 8.9 g/dL (6.4-8.2); UREA NITROGEN, BLOOD 12 mg/dL (7-18)
[2018-03-19 20:29] LABS: THYROID STIMULATING HORMONE 3.579 mIU/mL (0.358-3.740)
[2018-03-19] MEDS ORDERED: GABA600T2 PO (22:59)
[2018-03-19] MEDS ORDERED: GABA-534 PO (22:59)
[2018-03-19] MEDS: diphenhydrAMINE 50 MG CAPSULE PO PRN (23:39)
[2018-03-20] VITALS: BP 118/67
[2018-03-20] MEDS ORDERED: 5 DAY TAPER VALIUM-SERENITY PROTOCOL PO PRN (05:00)
[2018-03-20 08:36] VITALS: BP 124/75
[2018-03-20] MEDS: IBUPROFEN 600 MG TABLET PO PRN ×2 (08:40→21:10)
[2018-03-20] MEDS: DIAZEPAM 10 MG TABLET PO SCH ×3 (08:40→21:10)
[2018-03-20] MEDS: MULTIVITAMINS,THERAPEUTIC TABLET PO SCH (08:40)
[2018-03-20] MEDS ORDERED: TUBERCULIN,PURIF.PROT.DERIV. 5 TU/0.1 ML TEST ID ONE (09:00)
[2018-03-20] MEDS: ATENOLOL 50 MG TABLET PO SCH (09:52)
[2018-03-20] MEDS: GABAPENTIN 300 MG CAPSULE PO SCH (10:16)
[2018-03-20 12:00] VITALS: BP 115/79
[2018-03-20 16:37] VITALS: BP 134/79
[2018-03-20 16:52] VITALS: BP 137/85
[2018-03-20 20:00] VITALS: BP 153/103
[2018-03-20] MEDS ORDERED: GABAPENTIN 300 MG CAPSULE PO SCH (21:00)
[2018-03-20] MEDS: CLONIDINE HCL 0.1 MG TABLET PO PRN (21:10)
[2018-03-21] VITALS: BP 113/73
[2018-03-21] MEDS: diphenhydrAMINE 50 MG CAPSULE PO PRN ×2 (00:11→23:59)
[2018-03-21 08:00] VITALS: BP 145/87
[2018-03-21] MEDS: ATENOLOL 50 MG TABLET PO SCH (08:27)
[2018-03-21] MEDS: DIAZEPAM 5 MG TABLET PO SCH ×4 (08:28→21:59)
[2018-03-21] MEDS: MULTIVITAMINS,THERAPEUTIC TABLET PO SCH (08:28)
[2018-03-21] MEDS: GABAPENTIN 300 MG CAPSULE PO SCH ×3 (08:28→21:59)
[2018-03-21 09:02] LABS: BILIRUBIN,DIRECT 0.2 mg/dL (0.0-0.2); BILIRUBIN,TOTAL 0.7 mg/dL (0.2-1.0); TOTAL PROTEIN, SERUM 8.3 g/dL (6.4-8.2)
[2018-03-21 12:00] VITALS: BP 156/75
[2018-03-21] MEDS: CLONIDINE HCL 0.1 MG TABLET PO PRN ×2 (12:38→23:59)
[2018-03-21 13:06] LABS: HEPATITIS B SURFACE AG Negative (Negative)
[2018-03-21 16:00] VITALS: BP 135/75
[2018-03-21 20:00] VITALS: BP 132/83
[2018-03-21] MEDS: IBUPROFEN 600 MG TABLET PO PRN (23:59)
[2018-03-22] VITALS: BP 123/79
[2018-03-22 09:02] VITALS: BP 142/83
[2018-03-22] MEDS: MULTIVITAMINS,THERAPEUTIC TABLET PO SCH (09:03)
[2018-03-22] MEDS: DIAZEPAM 5 MG TABLET PO SCH ×3 (09:03→22:03)
[2018-03-22] MEDS: GABAPENTIN 300 MG CAPSULE PO SCH ×3 (09:04→22:02)
[2018-03-22] MEDS: ATENOLOL 50 MG TABLET PO SCH (09:04)
[2018-03-22] MEDS: IBUPROFEN 600 MG TABLET PO PRN ×2 (09:14→22:03)
[2018-03-22 13:00] VITALS: BP 135/80
[2018-03-22 17:11] VITALS: BP 149/83
[2018-03-22 20:00] VITALS: BP 148/82
[2018-03-22] MEDS: diphenhydrAMINE 50 MG CAPSULE PO PRN (22:03)
[2018-03-23] VITALS: BP 129/80
[2018-03-23 04:00] VITALS: BP 124/76
[2018-03-23 08:28] VITALS: BP 142/77
[2018-03-23] MEDS: MULTIVITAMINS,THERAPEUTIC TABLET PO SCH (08:50)
[2018-03-23] MEDS: ATENOLOL 50 MG TABLET PO SCH (08:50)
[2018-03-23] MEDS: GABAPENTIN 300 MG CAPSULE PO SCH ×3 (08:50→21:43)
[2018-03-23] MEDS: DIAZEPAM 5 MG TABLET PO SCH ×2 (08:50→21:43)
[2018-03-23] MEDS: IBUPROFEN 600 MG TABLET PO PRN (08:52)
[2018-03-23 12:54] VITALS: BP 158/53
[2018-03-23] MEDS: CLONIDINE HCL 0.1 MG TABLET PO PRN (14:49)
[2018-03-23 17:30] VITALS: BP 133/77
[2018-03-23 20:00] VITALS: BP 144/88
[2018-03-23] MEDS: QUETIAPINE FUMARATE 25 MG TABLET PO SCH (21:43)
[2018-03-23] MEDS: ACETAMINOPHEN 325 MG TABLET PO PRN (21:43)
[2018-03-24 07:39] LABS: BASOPHILS # (AUTO) 0.1 K/uL (0.0-8.0); EOSINOPHILS # (AUTO) 0.2 K/uL (0.0-0.7); EOSINOPHILS % (AUTO) 2.7 % (0.0-7.0); HEMATOCRIT 45.5 % (36.7-47.1); HEMOGLOBIN 15.7 g/dL (12.5-16.3); LYMPHOCYTES # (AUTO) 2.3 K/uL (20.0-40.0); LYMPHOCYTES % (AUTO) 26.4 % (20.5-51.5); MEAN CORPUSCULAR HEMOGLOBIN 33.2 uug (23.8-33.4); MEAN CORPUSCULAR HGB CONC 35 g/dL (32.5-36.3); MEAN CORPUSCULAR VOLUME 96.2 fL (73.0-96.2); MONOCYTES % (AUTO) 11.8 % (0.0-11.0); NEUTROPHILS # (AUTO) 5.1 K/uL (1.8-8.9); NEUTROPHILS % (AUTO) 58.1 % (38.5-71.5); PLATELET COUNT (AUTO) 189 K/uL (152-348); RED BLOOD CELL COUNT(AUTO) 4.73 MIL/uL (4.06-5.63); WHITE BLOOD COUNT (AUTO) 8.8 K/uL (3.6-10.2)
[2018-03-24 07:59] LABS: BILIRUBIN,TOTAL 0.2 mg/dL (0.2-1.0); POTASSIUM 3.5 mmol/L (3.5-5.1); TOTAL PROTEIN, SERUM 7.5 g/dL (6.4-8.2)
[2018-03-24 08:00] VITALS: BP 125/82
[2018-03-24] MEDS: GABAPENTIN 300 MG CAPSULE PO SCH ×3 (08:55→21:22)
[2018-03-24] MEDS: MULTIVITAMINS,THERAPEUTIC TABLET PO SCH (08:55)
[2018-03-24] MEDS: ATENOLOL 50 MG TABLET PO SCH (08:55)
[2018-03-24] MEDS: IBUPROFEN 600 MG TABLET PO PRN ×2 (09:00→21:22)
[2018-03-24] MEDS ORDERED: DIAZEPAM 5 MG TABLET PO SCH (09:00)
[2018-03-24 12:00] VITALS: BP 136/88
[2018-03-24] MEDS ORDERED: QUET25TA PO (13:17)
[2018-03-24] MEDS ORDERED: GABA-534 PO (13:17)
[2018-03-24] MEDS ORDERED: ATEN50TA PO (13:17)
[2018-03-24 16:00] VITALS: BP 127/84
[2018-03-24 20:00] VITALS: BP 136/71
[2018-03-24] MEDS: QUETIAPINE FUMARATE 25 MG TABLET PO SCH (21:22)
[2018-03-25] VITALS: BP 135/76
[2018-03-25] MEDS: ACETAMINOPHEN 325 MG TABLET PO PRN (00:40)
[2018-03-25 08:29] VITALS: BP 149/87
[2018-03-25 08:40] VITALS: BP 149/87
[2018-03-25] MEDS: MULTIVITAMINS,THERAPEUTIC TABLET PO SCH (08:40)
[2018-03-25] MEDS: GABAPENTIN 300 MG CAPSULE PO SCH (08:40)
[2018-03-25] MEDS: IBUPROFEN 600 MG TABLET PO PRN (08:40)
[2018-03-25] MEDS: ATENOLOL 50 MG TABLET PO SCH (08:40)
== END 2018-03-25 09:25 | disposition home or self-care (01) | DRG 772 ==
LOC: SRC 16:05
PROVIDERS: ADMIT Family Medicine Addiction Medicine; ATTEND Internal Medicine Addiction Medicine
PROC: HZ2ZZZZ Detoxification Services for Substance Abuse Treatment (ICD-10-PCS; principal; 2018-03-19)
PROC: HZ31ZZZ Individual Counseling for Substance Abuse Treatment, Behavioral (ICD-10-PCS; 2018-03-22)
PROC: HZ41ZZZ Group Counseling for Substance Abuse Treatment, Behavioral (ICD-10-PCS; 2018-03-23)
DX: F13.230 Sedative, hypnotic or anxiolytic dependence with withdrawal, uncomplicated (principal); F12.10 Cannabis abuse, uncomplicated; F41.1 Generalized anxiety disorder; G40.509 Epileptic seizures related to external causes, not intractable, without status epilepticus; Z72.89 Other problems related to lifestyle; R74.0 Nonspecific elevation of levels of transaminase and lactic acid dehydrogenase [LDH]; I10 Essential (primary) hypertension; F32.9 Major depressive disorder, single episode, unspecified
CPT/HCPCS: 36415; 70030-TC; 80307; 80349; 83735; 84443; 85025; 86580; 86592; 86705; 86803; 87340; 87806; G0480; Q0163

== ENCOUNTER 2018-04-16 21:12 | Emergency (ER) | payer SELFPAY ==
[~2018-04-16] VITALS: Ht 180.3 cm; Wt 124.7 kg
[~2018-04-16 21:12] MED LIST changes: -CLON2TAB PO; +GABA-534 PO; -HYDR-3980 PO; -ONDA4TAB8 SL; +QUET25TA PO
--- NOTE | 2018-04-16 21:18 | NUR ---
ER MD in room for patient evaluation.
[2018-04-16] MEDS ORDERED: ATENOLOL 50 MG TABLET PO ONE (21:45)
[2018-04-16] MEDS ORDERED: ATENOLOL 50 MG TABLET ONE (21:46)
[2018-04-16 22:10] LABS: CREATININE 1.1 mg/dL (0.6-1.3); POTASSIUM 3.4 mmol/L (3.5-5.1)
[2018-04-16 22:16] LABS: BASOPHILS % (AUTO) 0.5 % (0.0-2.0); EOSINOPHILS % (AUTO) 0.3 % (0.0-7.0); HEMATOCRIT 46.1 % (36.7-47.1); HEMOGLOBIN 16.1 g/dL (12.5-16.3); LYMPHOCYTES # (AUTO) 2.4 K/uL (20.0-40.0); LYMPHOCYTES % (AUTO) 29.9 % (20.5-51.5); MEAN CORPUSCULAR HEMOGLOBIN 32.8 uug (23.8-33.4); MEAN CORPUSCULAR HGB CONC 35 g/dL (32.5-36.3); MEAN CORPUSCULAR VOLUME 94.1 fL (73.0-96.2); MONOCYTES # (AUTO) 0.4 K/uL (2.0-10.0); NEUTROPHILS # (AUTO) 5.1 K/uL (1.8-8.9); NEUTROPHILS % (AUTO) 64.3 % (38.5-71.5); PLATELET COUNT (AUTO) 289 K/uL (152-348); WHITE BLOOD COUNT (AUTO) 7.9 K/uL (3.6-10.2)
[2018-04-16 22:24] LABS: BILIRUBIN,DIRECT 0.1 mg/dL (0.0-0.2); BILIRUBIN,TOTAL 0.3 mg/dL (0.2-1.0); TOTAL PROTEIN, SERUM 8.5 g/dL (6.4-8.2)
--- NOTE | 2018-04-16 22:31 | NUR ---
Patient remains in bed, no acute distress noted. patient states his CP is currently resolved. No s/s of anxiety at this time.
--- NOTE | 2018-04-16 22:58 | NUR ---
ER MD on phone with [facility], awaiting further update regarding patient placement.
--- NOTE | 2018-04-16 23:20 | NUR ---
Patient discharged to home in stable conditon. Written and verbal after care instructions given. Patient verbalizes understanding of instructions. Ambulated from ER with stable gait. All belongigns with patient. VSS
[2018-04-16 23:21] VITALS: BP 122/68
== END 2018-04-16 23:21 | disposition home or self-care (01) ==
LOC: ER 21:12
DX: F41.9 Anxiety disorder, unspecified (principal); I10 Essential (primary) hypertension; F12.10 Cannabis abuse, uncomplicated; Z88.8 Allergy status to other drugs, medicaments and biological substances; Z79.899 Other long term (current) drug therapy
CPT/HCPCS: 36415; 70030-TC; 71045; 84443; 85025; 85730; 93005; A4663

== ENCOUNTER 2018-07-23 09:55 | Emergency (ER) | payer SELFPAY ==
[~2018-07-23] VITALS: Ht 177.8 cm; Wt 106.6 kg
[~2018-07-23 09:55] MED LIST changes: -QUET25TA PO
[2018-07-23] MEDS ORDERED: GABAPENTIN 400 MG CAPSULE ONE (10:56)
[2018-07-23] MEDS ORDERED: ATENOLOL 50 MG TABLET ONE (10:57)
[2018-07-23] MEDS ORDERED: GABAPENTIN 400 MG CAPSULE PO ONE (11:00)
[2018-07-23] MEDS ORDERED: ATENOLOL 50 MG TABLET PO ONE (11:00)
--- NOTE | 2018-07-23 11:08 | NUR ---
PT WAS D/C'd TO HOME AFTER DR DOOLEY EVALUATION. D/C INSTRUCTIONS GIVEN TO THE PT.
[2018-07-23 11:10] VITALS: BP 143/79
== END 2018-07-23 11:10 | disposition home or self-care (01) ==
LOC: ER 09:55
DX: R07.9 Chest pain, unspecified (principal); R51 Headache; I10 Essential (primary) hypertension; F12.10 Cannabis abuse, uncomplicated; Z76.0 Encounter for issue of repeat prescription; Z88.8 Allergy status to other drugs, medicaments and biological substances; Z79.899 Other long term (current) drug therapy
CPT/HCPCS: A4663

== ENCOUNTER 2019-04-02 20:54 | Emergency (ER) | payer SELFPAY ==
[~2019-04-02] VITALS: Ht 177.8 cm; Wt 120.2 kg
--- NOTE | 2019-04-02 21:29 | NUR ---
Patient discharged to home in stable conditon. Written and verbal after care instructions given. Patient verbalizes understanding of instructions. Patient ambulated with stable gait.
[2019-04-02 21:31] VITALS: BP 131/91
== END 2019-04-02 21:32 | disposition home or self-care (01) ==
LOC: ER 20:54
DX: I16.0 Hypertensive urgency (principal); F41.9 Anxiety disorder, unspecified; F17.200 Nicotine dependence, unspecified, uncomplicated; F12.10 Cannabis abuse, uncomplicated; Z76.0 Encounter for issue of repeat prescription; Z79.899 Other long term (current) drug therapy; Z88.8 Allergy status to other drugs, medicaments and biological substances
CPT/HCPCS: A4663

== ENCOUNTER 2019-05-14 18:24 | Emergency (ER) | payer MEDICAID ==
[~2019-05-14] VITALS: Ht 177.8 cm; Wt 12.2 kg
--- NOTE | 2019-05-14 18:40 | NUR ---
DR DOOLEY AT BEDSIDE FOR EVAL...
[2019-05-14] MEDS ORDERED: ATENOLOL 50 MG TABLET PO ONE (19:00)
[2019-05-14 19:03] VITALS: BP 122/89
[2019-05-14] MEDS ORDERED: ATENOLOL 50 MG TABLET ONE (19:03)
--- NOTE | 2019-05-14 19:07 | NUR ---
MEDICATION GIVEN ORDERED. DC, RX AND F/U INSTRUCTIONS GIVEN AND EXPLAINED TO PATIENT WHO STATES HE UNDERSTANDS ALL INSTRUCTIONS
== END 2019-05-14 19:08 | disposition home or self-care (01) ==
LOC: ER 18:25
DX: Z76.0 Encounter for issue of repeat prescription (principal); I10 Essential (primary) hypertension; F41.9 Anxiety disorder, unspecified; F17.200 Nicotine dependence, unspecified, uncomplicated; Z79.899 Other long term (current) drug therapy
CPT/HCPCS: A4663

== ENCOUNTER 2020-06-02 18:26 | Emergency (ER) | payer SELFPAY ==
[~2020-06-02] VITALS: Ht 177.8 cm; Wt 120.2 kg
--- NOTE | 2020-06-02 18:39 | NUR ---
at bedside for assessment
[2020-06-02] MEDS ORDERED: GABA600T12 PO ×2 (18:54→19:41)
[2020-06-02] MEDS ORDERED: ATEN50TA PO ×2 (18:55→19:41)
[2020-06-02] MEDS ORDERED: ATENOLOL 50 MG TABLET PO ONE (19:15)
[2020-06-02] MEDS ORDERED: GABAPENTIN 400 MG CAPSULE PO ONE (19:15)
[2020-06-02] MEDS ORDERED: GABAPENTIN 400 MG CAPSULE ONE (19:28)
[2020-06-02] MEDS ORDERED: ATENOLOL 50 MG TABLET ONE (19:28)
--- NOTE | 2020-06-02 19:42 | NUR ---
Patient discharged to home in stable condition. Written and verbal after care instructions given. Patient verbalizes understanding of instructions. Stressed follow up or return to ER for worsening s/s. Patient ambulated with steady gait. All belongings returned to patient prior to departure.
[2020-06-02 19:43] VITALS: BP 144/82
== END 2020-06-02 19:44 | disposition home or self-care (01) ==
LOC: ER 18:28
DX: R51.9 Headache, unspecified (principal); I10 Essential (primary) hypertension; Z76.0 Encounter for issue of repeat prescription; F41.9 Anxiety disorder, unspecified
CPT/HCPCS: A4663

== ENCOUNTER 2020-07-05 18:56 | Emergency (ER) | payer SELFPAY ==
[~2020-07-05] VITALS: Ht 177.8 cm; Wt 117.9 kg
[~2020-07-05 18:56] MED LIST changes: -GABA-534 PO; +GABA600T12 PO
--- NOTE | 2020-07-05 19:00 | NUR ---
MD Brian Bangura in room to do MSE.
[2020-07-05] MEDS ORDERED: ACETAMINOPHEN ES 500 MG TABLET PO ONE (19:15)
[2020-07-05] MEDS ORDERED: ATENOLOL 50 MG TABLET PO ONE (19:15)
[2020-07-05] MEDS ORDERED: ATEN50TA PO (19:23)
[2020-07-05] MEDS ORDERED: GABA600T12 PO (19:23)
[2020-07-05] MEDS ORDERED: ATENOLOL 50 MG TABLET ONE (19:37)
[2020-07-05] MEDS ORDERED: ACETAMINOPHEN ES 500 MG TABLET ONE (19:37)
[2020-07-05] MEDS ORDERED: GABAPENTIN 400 MG CAPSULE ONE (19:44)
[2020-07-05] MEDS ORDERED: GABAPENTIN 400 MG CAPSULE PO ONE ×2 (19:45)
[2020-07-05 19:50] VITALS: BP 130/72
--- NOTE | 2020-07-05 19:50 | NUR ---
Patient discharged to home in stable condition. Written and verbal after care instructions given. Patient verbalizes understanding of instructions. Stressed follow up or return to ER for worsening s/s. Patient ambulates with steady gait, V/S stable, received Rx, left with all personal belongings.
== END 2020-07-05 19:50 | disposition home or self-care (01) ==
LOC: ER 18:57
DX: I10 Essential (primary) hypertension (principal); R51.9 Headache, unspecified; F41.9 Anxiety disorder, unspecified; Z76.0 Encounter for issue of repeat prescription
CPT/HCPCS: 93005; A4663; A9150

== ENCOUNTER 2020-07-07 15:02 | Emergency (ER) | payer SELFPAY ==
[~2020-07-07] VITALS: Ht 177.8 cm; Wt 120.2 kg
--- NOTE | 2020-07-07 15:10 | NUR ---
Dr Bull at bedside for MSE.
[2020-07-07] MEDS ORDERED: ATEN50TA PO (15:32)
[2020-07-07] MEDS ORDERED: GABA600T12 PO (15:32)
--- NOTE | 2020-07-07 15:45 | NUR ---
Patient discharged to home in stable condition. Written and verbal after care instructions given. Patient verbalizes understanding of instructions. Stressed follow up or return to ER for worsening s/s.
[2020-07-07 16:42] VITALS: BP 150/85
== END 2020-07-07 16:00 | disposition home or self-care (01) ==
LOC: ER 15:02
DX: F41.9 Anxiety disorder, unspecified (principal); F13.20 Sedative, hypnotic or anxiolytic dependence, uncomplicated; Z76.0 Encounter for issue of repeat prescription; I10 Essential (primary) hypertension
CPT/HCPCS: A4663

== ENCOUNTER 2021-02-28 22:08 | Emergency (ER) | payer MEDICAID ==
[~2021-02-28] VITALS: Ht 177.8 cm; Wt 122.5 kg
--- NOTE | 2021-02-28 22:32 | NUR ---
Dr. Bangura at bedside for MSE.
[2021-02-28] MEDS ORDERED: ONDANSETRON ODT 4 MG TAB.RAPDIS SL ONE (22:45)
[2021-02-28] MEDS ORDERED: LORAZEPAM 0.5 MG TABLET PO ONE (22:45)
[2021-02-28] MEDS ORDERED: HYDROCODONE/APAP 10-325 MG TABLET PO ONE (22:45)
[2021-02-28] MEDS ORDERED: HYDROCODONE/APAP 10-325 MG TABLET ONE (22:50)
[2021-02-28] MEDS ORDERED: LORAZEPAM 1 MG TABLET ONE (22:50)
[2021-02-28] MEDS ORDERED: ONDANSETRON ODT 4 MG TAB.RAPDIS ONE (22:51)
[2021-02-28 23:15] LABS: HEMATOCRIT 45.5 % (36.7-47.1); PLATELET COUNT (AUTO) 214 K/uL (152-348)
[2021-02-28 23:23] LABS: CREATININE 1.2 mg/dL (0.6-1.3); POTASSIUM 3.7 mmol/L (3.5-5.1)
[2021-02-28 23:29] LABS: BILIRUBIN,DIRECT 0.1 mg/dL (0.0-0.2); BILIRUBIN,TOTAL 0.6 mg/dL (0.2-1.0); TOTAL PROTEIN, SERUM 7.9 g/dL (6.4-8.2)
[2021-02-28] MEDS ORDERED: HYDR-3980 PO (23:40)
[2021-02-28] MEDS ORDERED: ONDA4TAB5 PO (23:40)
[2021-02-28 23:54] VITALS: BP 104/79
--- NOTE | 2021-02-28 23:54 | NUR ---
Patient discharged to home in stable condition. Written and verbal after care instructions given. Patient verbalizes understanding of instructions. Stressed follow up or return to ER for worsening s/s. Patient out of ER with steady gait, no acute signs of distress, VSS, all belongings taken, provided with copies of lab results.
== END 2021-02-28 23:55 | disposition home or self-care (01) ==
LOC: ER 22:13
DX: K85.20 Alcohol induced acute pancreatitis without necrosis or infection (principal); F10.10 Alcohol abuse, uncomplicated; E66.3 Overweight; Z68.38 Body mass index [BMI] 38.0-38.9, adult; F41.9 Anxiety disorder, unspecified; I10 Essential (primary) hypertension; Z79.899 Other long term (current) drug therapy; F13.11 Sedative, hypnotic or anxiolytic abuse, in remission
CPT/HCPCS: 36415; 83690; 85025; A4663; Q0162